=== PATIENT | male | born 1960 | race Caucasian/White ===

== ENCOUNTER → 2021-08-05 02:10 | Outpatient (CLI) | payer BC, SELFPAY ==
[2021-08-05 19:53] LABS: SARS-CoV-2 RNA PCR Negative
== END ==
PROVIDERS: Visit Provider Podiatrist Foot & Ankle Surgery
DX: Z01.812 Encounter for preprocedural laboratory examination (principal); Z20.822 Contact with and (suspected) exposure to COVID-19
CPT/HCPCS: C9803; U0003; U0005

== ENCOUNTER 2021-08-08 00:57 | Day surgery (SDC) | payer BC, SELFPAY ==
[2021-08-04 12:52] VITALS: BMI 33.9
--- NOTE | 2021-08-04 12:59 | PC.NURSE ---
Report to the Outpatient Waiting Room, entrance under the green pavilion located off [facility], at time 0700 on date 08/08/21. OR Time: 0900. - You will be asked a series of questions to screen for COVID 19 for your protection. - A mask is required within the hospital. - No visitors are allowed at this time. Preoperative COVID Testing Requirements: COVID TEST 08/05 0930 No COVID Test needed if: (proof is required; if not received patient will have Rapid Test prior to entry) - Patient has received COVID Vaccine at least 14 days prior to procedure date or - Patient has positive COVID test result within last 90 days of surgery date. COVID Test needed if above criteria is not met If not COVID vaccinated a COVID test must be conducted within 72 hours of surgery and patient is asked to isolate self from time of testing until procedure. You will go to the [facility] for your COVID testing. The [facility] is located at the corner of [address] [facility]. You will only be called if COVID results are positive and your surgeon may reschedule your elective surgery date. Patients may have clear liquids (water, carbonated beverages, clear teas, apple juice) until 3 hours prior to surgery with a maximum of 20 ounces. - No food from midnight until time of surgery Take the following medications with a SIP of water the morning of surgery: NONE Medications to discontinue per physician: N/A Date to take last dose: N/A Please no make-up, nail nigerien, hairspray, perfume, deodorant, or body powder the day of surgery. No jewelry (including any body piercings) or valuables the day of surgery, leave them at home. Please take a shower or bath the night before, or the morning of, surgery with an antibacterial soap. Wear comfortable, loose fitting clothing. - Jewelry must be removed prior to entering the operating room. Rings and piercings that are not removed may be cut off. - The hospital will not accept responsibility for valuables. - Please leave all valuables, including medications, at home the day of surgery. If you are going home after surgery, a licensed oil transport driver must drive you home. - NO public transportation without another adult. - We recommend that an adult stay with you for 24 hours following discharge. - We also recommend that you do not drive, make important decision, drink alcoholic beverages, or take any drugs that were not prescribed by your health care provider for at least 24 hours after your discharge time. Follow any additional instructions given to you from your surgeon. Telephone instructions given to LETICIA OLIVER and asked if any additional questions and then verbalized understanding. Patient advised to call surgeon office or pre surgery nurse liaison [phone] if any additional questions.
--- NOTE | ~2021-08-08 | XR_ITS ---
EXAMINATION: XR surgery orthopedic DATE: 08/08/2021 09:23 INDICATION: Colectomy at the right first metatarsal. TECHNIQUE: 2 fluoroscopic images of the right forefoot were obtained during procedure performed by Dr Ángel Hutchinson. Radiologist was not present for the imaging or procedure. The amount of fluoroscopy time used during this procedure was 0.2 minutes. COMPARISON: None. FINDINGS: Mild hallux valgus. Moderate osteoarthritis at the first metatarsophalangeal joint with prominent mar ginal osteophytes medially and laterally on the dorsal plantar projection. Lateral projection suggest s cheilectomies at the dorsal head of the first metatarsal and base of the first proximal phalanx how ever assessment is technically limited by overpenetration. No fracture. IMPRESSION: 1. Fluoroscopy utilized during reported cheilectomy at the right first metatarsal. See procedure note for further detail. Reviewed, dictated and finalized at location A. [employer] IMPRESSION: 1. Fluoroscopy utilized during reported cheilectomy at the right first metatars al. See procedure note for further detail.
--- NOTE | 2021-08-08 07:25 | WPDHPUPDATE1 ---
History and Physical Update Update Date/Time: 08/08/21 07:25 History and Physical has been reviewed, including an updated exam of the patient. There are NO changes in the patient's condition. Risks, benefits, and alternatives have been discussed and questions answered. Patient agrees to proceed with procedure.
[2021-08-08] MEDS: LACTATED RINGERS 1,000 ML 30 ML IV CONT (08:10)
[2021-08-08 08:11] VITALS: BP 157/99; PULSE 75; RESP 20; TEMP 36.6; O2SAT 99
--- NOTE | 2021-08-08 08:12 | WPDANESEPPF ---
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 [facility] Past Medical History Medical History (Updated 08/08/21 @ 08:13 by Franck Joyce MD) HTN (hypertension) Obesity Surgical History Surgical History (Updated 08/08/21 @ 08:13 by Franck Joyce MD) History of total knee arthroplasty bilateral Social History Social History Smoking status: Never smoker Alcohol intake: current Drinks per week: 6 Substance use: never Substance use type: does not use Living arrangements: with family Spiritual care concerns: No Anes - Eval Final PreProcedure Day of Procedure 08/08/21 08:12 Patient weight: obese Heart: regular rate and rhythm Lungs: clear to auscultation Airway: Mallampati scale class II Neurological: alert and oriented Last oral intake: >/= 8 hours ASA classification: II Emergent: no Anesthetic plan: proceed Anesthesia type and monitoring: general GIVS and standard monitoring Results Review: All pre-operative results and documents have been reviewed as part of the pre-operative evaluation. Informed Consent: The patient's anesthetic plan and its attendant risks and benefits were discussed with the patient/family/POA. Questions were solicited and answers provided to the satisfaction of the patient/family/POA.
[2021-08-08] MEDS: ceFAZolin 2 GM/D5W 50 ML 2 GM/50 ML BAG IVPB (08:22)
[2021-08-08] MEDS: LIDOCAINE HCL 2% PF INJ 5 ML VIAL 10 ML INFILTRATE (08:30)
[2021-08-08 09:11] VITALS: BP 116/61; PULSE 79; RESP 16; O2SAT 98
--- NOTE | 2021-08-08 09:24 | W.PM.PROC2 ---
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 A pneumatic ankle tourniquet was placed about the patient's right ankle. Following general LMA, a local anesthetic block was obtained about the foot and ankle utilizing 20 cc of a 1:1 of 2% Lidocaine plain and 0.5% Marcaine plain. The foot was then scrubbed, prepped, and draped in the usual aseptic manner. An Esmarch bandage was then used to exsanguinate the patient's foot and the pneumatic ankle tourniquet was then inflated. Surgery began in the following manner: Attention was directed to the dorsal aspect of the 1st metatarsophalangeal joint where there was a large osteophyte noted along the dorsomedial aspect of the joint. The incision was made starting along the central shaft of the 1st metatarsal and extending just proximal to the interphalangeal joint of the hallux. The incision was continued deep down through the subcutaneous tissues using sharp and blunt dissection. All bleeders were cauterized as necessary. At this point, the dissection was continued down to the level of the periosteum and capsular structures overlying the 1st metatarsophalangeal joint. A full length periosteum and capsular incision was made just medial to the extensor hallucis longus tendon. The periosteum and capsular structures were freed from the base of the proximal phalanx as well as the distal 1st metatarsal. The joint was essentially ankylosedl . There was significant broadening and hypertrophy of the 1st metatarsophalangeal joint with a very large dorsal spur. Utilizing a sagittal bone saw, the hypertrophied 1st metatarsal was resected dorsally, medially, and laterally. A power bur was used to make sure that there were no rough edges and also to further debride the hypertrophic 1st metatarsal. Approximately one third of the dorsal first metatarsal was resected. Next, a rongeur was used to resect all hypertrophic base of the proximal phalanx. Moreover, the wound site was then flushed with copious amounts of sterile saline. Fluoroscopy was adequate resection of the osseous proliferation to the first metatarsal phalangeal joint. Next, the periosteum and capsular structures were reapproximated with 3-0 Vicryl. Next, the subcutaneous structures were reapproximated with 4-0 Vicryl. Next, the skin was reapproximated and coapted utilizing 4-0 Monocryl in running subcuticular suture fashion technique. Upon completion of the procedure, the incision was dressed with Steri-Strips, Adaptic, 4x4s, Kerlix, and Coban. The pneumatic ankle tourniquet was then deflated and a prompt hyperemic response was noted to all digits of the foot. A surgical shoe was then applied to the affected lower extremity. It is important to note that Dr. Hutchinson was present throughout the procedure. The patient did very well with the procedure and the anesthesia. He was transferred to the recovery room with vital signs stable and vascular status intact to all toes of the foot. Following a period of postoperative monitoring, the patient will be discharged home on the following written and oral postoperative instructions: 1. Keep the dressing clean, dry, and intact. 2. The patient to be protected weight bearing with a surgical shoe. 3. The patient should ice and elevate the affected foot when at rest. 4. The patient should contact Dr. Hutchinson for all postop care and if any problems should arise. She will follow up in one week for her post op visit. 5. Prescriptions were written for Percocet ,
[2021-08-08 09:40] VITALS: BP 131/67; PULSE 72; RESP 20
[2021-08-08 10:20] VITALS: BP 142/70; PULSE 70; RESP 20
== END 2021-08-08 10:50 | disposition home or self-care (01) ==
PROVIDERS: Visit Provider Podiatrist Foot & Ankle Surgery
PROC: (CPT 28289; principal; 2021-08-08 09:00)
DX: M25.774 Osteophyte, right foot (principal); M19.071 Primary osteoarthritis, right ankle and foot; M25.571 Pain in right ankle and joints of right foot; I10 Essential (primary) hypertension; E66.9 Obesity, unspecified; Z68.34 Body mass index [BMI] 34.0-34.9, adult
CPT/HCPCS: 28289; J0690; J2250; J2704; J3010; J7120

== ENCOUNTER 2021-09-23 18:34 | Emergency (ER) | payer BC, SELFPAY ==
[2021-09-23 18:52] VITALS: BP 161/100; PULSE 65; RESP 18; TEMP 36.9; O2SAT 100
--- NOTE | 2021-09-23 19:12 | ED.UPPEXIN ---
HPI - Extremity Injury (Upper) General Chief Complaint: Extremity Injury, Upper Stated Complaint: Lt Elbow Pain Time Seen by Provider: 09/23/21 19:01 Source: patient and RN notes reviewed Mode of arrival: ambulatory Limitations: no limitations History of Present Illness HPI narrative: Patient presents today complaining of left elbow pain. Approximately 6 hours prior to arrival, he was falling into a wall, put his hand up to stop himself, causing pain to his elbow. States he did not have pain immediately, but reports that his pain has consistently worsened throughout the day. He does report some tingling to his hand, but denies numbness. Reports any range of motion increases pain to his elbow. He has been wearing a sling. When the sling is on he rates his pain 2/10, and when the sling is off he rates his pain 10/10. He has not tried any [id number] medication for pain prior to arrival. Related Data Home Medications Medication Instructions Recorded Confirmed lisinopril 20 mg PO DAILY 08/04/21 08/08/21 Allergies Allergy/AdvReac Type Severity Reaction Status Date / Time No Known Allergies Allergy Verified 09/23/21 19:12 Review of Systems Review of Systems: CONSTITUTIONAL: Denies body aches, fever, chills, or sweats. EYES: Denies visual changes, redness, or discharge. ENT: Denies rhinorrhea, congestion, sore throat, or otalgia. CARDIOVASCULAR: Denies chest pain, palpitations, or edema. RESPIRATORY: Denies cough or dyspnea. GASTROINTESTINAL: Denies abdominal pain, nausea, vomiting, or diarrhea. GENITOURINARY: Denies dysuria or hematuria. SKIN: Denies rash, itching, or wounds. MUSCULOSKELETAL: Denies back pain, or myalgia.+ Left elbow pain NEUROLOGIC: Denies headache, numbness, or weakness.+ Tingling to the left hand PSYCH: Denies depression or anxiety. [facility] Past Medical History Medical History HTN (hypertension) Obesity Surgical History Surgical History History of total knee arthroplasty bilateral Social History Social History Smoking status: Never smoker Alcohol intake: current Drinks per week: 6 Substance use: never Substance use type: does not use Spiritual care concerns: No Comments At time of signature, I have reviewed and agree with nursing past medical, surgical, social and family history unless otherwise noted. Please see nursing chart for further information. There is no relevant family history pertinent to the presenting complaint Exam Narrative: GENERAL: Well-appearing, well-nourished, and in no acute distress. HEAD: Normocephalic, atraumatic. EYES: EOMI. No redness or drainage. Conjunctivae normal. ENT: Mucous membranes pink and moist. NECK: Normal AROM. CHEST: No respiratory distress. EXTREMITIES: Left elbow: Patient has some mild point tenderness to the lateral epicondyles. No tenderness to the medial epicondyle. Patient states very mild tenderness to the olecranon process. Patient has significant soft tissue tenderness generalized about the elbow. Mild to moderate edema about the elbow as well. He will make an effort to extend the elbow at all. He will not make the effort to pronate or supinate the elbow at all. Distal sensation intact. Capillary refill normal. Radial pulse normal. SKIN: Warm, dry, no rash. Capillary refill normal. Normal skin turgor. NEURO: No focal deficits. Alert and oriented x3. Gait steady. PSYCH: Normal affect. No signs of depression or anxiety. Course Course Emergency Course: 1917-patient refuses to fully extend his arm for x-ray imaging. Will discontinue study. Educated patient on anti-inflammatories and ice. Instructed him to follow-up with orthopedics. Level of Care: Express Care Visit Vital Signs Vital signs: Vital Signs Temperature 98.4 F
== END 2021-09-23 19:30 | disposition home or self-care (01) ==
PROVIDERS: Emergency Provider Nurse Practitioner; PCP Family Medicine
DX: S59.902A Unspecified injury of left elbow, initial encounter (principal); W19.XXXA Unspecified fall, initial encounter; I10 Essential (primary) hypertension; E66.9 Obesity, unspecified; Z68.35 Body mass index [BMI] 35.0-35.9, adult
CPT/HCPCS: 99212; G0463